=== PATIENT | male | born 1965 | race Caucasian/White ===

== ENCOUNTER 2023-02-18 11:52 | Day surgery (SDC) | payer OTHER ==
[2023-02-18] VITALS (10 sets, daily range): BP systolic 120–149; BP diastolic 72–91; PULSE 80–90; TEMP 98.9
[~2023-02-18] VITALS: Ht 185.4 cm; Wt 119.8 kg
[2023-02-18 12:39] LABS: HEMATOCRIT 48.2 % (42.0-52.0); HEMOGLOBIN 16.6 g/dl (13.5-18.0); MEAN CELL VOLUME 87 fl (80.0-100.0); MEAN CORPUSCULAR HEMOGLOBIN 30 pg (27-31); MEAN CORPUSCULAR HGB CONC 34 g/dl (33.0-37.0); MEAN PLATELET VOLUME 9.7 fl (7.4-10.4); PLATELET COUNT 404 K/mm3 (130-400); RED BLOOD COUNT 5.57 M/mm3 (4.20-5.60); REDCELL DISTRIBUTION WIDTH-CV 13.7 % (11.5-14.5)
[2023-02-18 12:45] LABS: INR 1.1 (0.8-3.0); PROTHROMBIN TIME 12.5 SECONDS (9.7-12.8)
[2023-02-18 12:47] LABS: PARTIAL THROMBOPLASTIN TIME 29.1 SECONDS (26.0-37.0)
[2023-02-18] MEDS ORDERED: TOPROL XL 25MG25 MG PO (12:51)
[2023-02-18] MEDS ORDERED: ENTRESTO 24 MG1 EACH PO (12:51)
[2023-02-18 12:55] LABS: CALCIUM 8.7 mg/dL (8.4-10.2); CREATININE, serum 0.98 mg/dL (0.72-1.25); POTASSIUM 3.6 mmol/L (3.5-4.5)
--- NOTE | 2023-02-18 14:00 | NUR ---
Please see merge documentation for record of interventions, vitals and medications administered during left heart cath.
[2023-02-18] MEDS ORDERED: PLAVIX 75MG TAB75 MG PO (14:31)
--- NOTE | 2023-02-18 17:27 | NUR ---
pt tolerated recovery period well. pt assisted to er exit via wheelchair. right radial dressing was clean dry and intact and pt remained free from signs of bleeding and hematoma. pt voided prior to discharge and IV discontinued. pt verbalized understanding of discharge instructions and was free from acute concerns and complaints at time of discharge.
== END 2023-02-18 17:28 | disposition home or self-care (01) ==
LOC: COL.CAR 11:52
PROVIDERS: Internal Medicine Interventional Cardiology
DX: R07.9 Chest pain, unspecified (principal); R94.39 Abnormal result of other cardiovascular function study; R94.31 Abnormal electrocardiogram [ECG] [EKG]; I50.20 Unspecified systolic (congestive) heart failure; F17.220 Nicotine dependence, chewing tobacco, uncomplicated
CPT/HCPCS: C1769; J1644; J2250; J3010; Q9967

== ENCOUNTER 2023-09-23 10:51 | Day surgery (SDC) | payer OTHER ==
[2023-09-23] VITALS (9 sets, daily range): BP systolic 104–122; BP diastolic 58–80; PULSE 65–96; TEMP 97.6–98.2
[~2023-09-23] VITALS: Ht 188 cm; Wt 120.4 kg
[~2023-09-23 10:51] MED LIST: 1/2 NS 1,000 ML IV SCH; ENTRESTO 24 MG1 EACH PO; PLAVIX 75MG TAB75 MG PO; TOPROL XL 25MG25 MG PO; Vancomycin 1.5 GM,Special Dose/Pharmacy Prepared 1.5 GM in NS 250 ML IV SCH
[2023-09-23] MEDS ORDERED: ENTRESTO 49 MG1 EACH PO (11:26)
[2023-09-23] MEDS ORDERED: CRESTOR20 MG PO (11:27)
[2023-09-23 11:50] LABS: BASO # 0.1 K/mm3 (0.0-0.2); BASO % 1.3 % (0.0-2.0); EOS # 0.2 K/mm3 (0.0-0.7); EOS % 2.2 % (0.0-4.0); GRAN % 56.6 % (42.2-75.2); HEMATOCRIT 44.8 % (42.0-52.0); HEMOGLOBIN 15.4 g/dl (13.5-18.0); LYMPH # 2.6 K/mm3 (1.2-3.4); LYMPH % 30.1 % (20.0-51.0); MEAN CELL VOLUME 85 fl (80.0-100.0); MEAN CORPUSCULAR HEMOGLOBIN 29 pg (27-31); MEAN CORPUSCULAR HGB CONC 34 g/dl (33.0-37.0); MEAN PLATELET VOLUME 9.1 fl (7.4-10.4); MONO # 0.8 K/mm3 (0.1-0.6); MONO % 9.3 % (1.7-9.3); PLATELET COUNT 355 K/mm3 (130-400); RED BLOOD COUNT 5.27 M/mm3 (4.20-5.60); REDCELL DISTRIBUTION WIDTH-CV 13.7 % (11.5-14.5)
[2023-09-23 12:03] LABS: CREATININE, serum 0.98 mg/dL (0.72-1.25); INR 1.2 (0.8-3.0); POTASSIUM 3.3 mEq/L (3.5-4.5); PROTHROMBIN TIME 13.4 SECONDS (9.7-12.8)
--- NOTE | 2023-09-23 15:23 | NUR ---
SEE MERGE FOR PROCEDURE DOCUMENTATION
[2023-09-23] MEDS ORDERED: Vancomycin 1 GM VIAL IR SCH (15:38)
[2023-09-23] MEDS ORDERED: NS 1,000 ML IV.SOLN. IR SCH (15:44)
[2023-09-23] MEDS ORDERED: Midazolam 2 MG/2 ML VIAL IV SCH (17:03)
[2023-09-23] MEDS ORDERED: fentaNYL 50 MCG/ML 2 ML VIAL IV SCH (17:04)
[2023-09-23] MEDS ORDERED: Iohexol 350 - 100 ML VIAL IV ONE (17:05)
[2023-09-23] MEDS ORDERED: Nitroglycerin 100 MCG/ML (Cath Lab) 10 ML VIAL IV SCH (17:20)
[2023-09-23] MEDS ORDERED: Furosemide 40 MG/4 ML VIAL IV SCH (17:24)
[2023-09-23] MEDS ORDERED: Chloroprocaine PF 3% (30 MG/ML) 20 ML VIAL IJ SCH (17:26)
[2023-09-23] MEDS ORDERED: CLEOCIN HCL300 MG PO (17:29)
[2023-09-23] MEDS ORDERED: Naloxone 0.4 MG/ML VIAL IV PRN (17:30)
--- NOTE | 2023-09-23 17:54 | NUR ---
PATIENT ARRIVED AT APROX 1745 FROM PACU. PATIEN TIS AWAKE ALERT AND ORIENTED. SITTING UP IN BED. CALL LIGHT WITHIN REACH. ICD SITE CDI, PRESSURE DRESSING PLACED, PER PACU PATIENT HAD A HEMATOMA FORMING AND PRESSURE DRESSIGN WAS PLACED. PATIENT DENIES ANY NEEDS OR PAIN AT THIS TIME. CALL LIGHT WITHIN REACH. POST OP VITALS INITIATED.
--- NOTE | 2023-09-23 17:57 | NUR ---
PT ALERT AND ORIENTED, REPORTS PAIN TO LEFT CHEST/SHOULDER IS TOLERABLE. DENIES NAUSEA. DRESSING SITE CDI, NO VISIBLE HEMATOMA OR BRUISING NOTED OUTSIDE OF DRESSING. PATIENT TRANSFERRED TO BED VIA SLIDEBOARD AND TRANSPORTED TO [facility]. TRANSFER OF CARE REPORT TO Shayne AND YOEL MARTIN. VITAL SIGNS TAKEN ON ARRIVAL, VSS. PATIENT PROVIDED CALL LIGHT, BED TO LOWEST POSITION, X3 BEDRAILS IN PLACE.
[2023-09-23] MEDS ORDERED: Acetaminophen 500 MG TAB PO SCH (18:26)
--- NOTE | 2023-09-23 18:45 | NUR ---
PT IN BED ON POST OP VITALS. PT ORIENTED TO ROOM, CALL LIGHT, SMOKINNG POLICY AND MEALS. PT STATES THAT HE CHEWS TOBACCO. THIS NURSE NOTIFIED PT THAT IT GOES AGAINST POLICY AND THAT PT WOULD NOT BE ABLE TO DO THAT HERE, PT STATES "PEOPLE BRINGS THINGS INTO THE HOSPITAL THEY SHOULDNT ALL THE TIME". THIS NURSE REEDUCATED PT AND ADVISED AGAINST THIS. INT TO LEFT HAND, FLUIDS STARTED PER ORDER. SCHEDULED TYLENOL GIVEN, PT REPORTS 5/10 LEFT SHOULDER PAIN. LEFT ARM IN SLING. PT USING LEFT ARM TO TAKE PILLS AND PUSH HIMSELF UP IN BED. THIS NURSE EDUCATED PT TO USE ARM LESS AND PT VERBALIZED UNDERSTANDING STATING "I DIDNT RAISE IT ABOVE MY HEAD". PT ON POST OP VITALS. PT DENIES NEEDS. BED IN LOWEST POSITION, CALL LIGHT IN REACH, BED ALARM ON
[2023-09-23] MEDS ORDERED: Clindamycin 150 MG CAP PO SCH (21:00)
[2023-09-23] MEDS ORDERED: fentaNYL 50 MCG/ML 2 ML VIAL IV PRN (22:15)
[2023-09-24] MEDS ORDERED: predniSONE 20 MG TAB PO ONE (02:15)
[2023-09-24] MEDS ORDERED: methylPREDNISolone Sod Succ 125 MG/2 ML VIAL IV ONE (02:15)
[2023-09-24] MEDS ORDERED: diphenhydrAMINE 50 MG CAP PO ONE (02:30)
[2023-09-24 03:37] VITALS: BP 147/80; PULSE 73; TEMP 97.6
[2023-09-24 04:05] VITALS: BP_SYST 147
--- NOTE | 2023-09-24 06:58 | NUR ---
Patient laying in bed sleeping, easily awakened with verbal command. A&Ox3, drowsy. VSS. 1L NC O2. IV CDI. LF chest incision CDI. Sling off, patient refusing to wear. Call light within reach
[2023-09-24 07:22] VITALS: BP 155/86; PULSE 84; TEMP 97.9
[2023-09-24 11:54] VITALS: BP 144/80; PULSE 83; TEMP 98
--- NOTE | 2023-09-24 12:28 | NUR ---
Discharge paperwork reviewed with the patient and family at the bedside. Patient verbalized an understanding to follow doctors orders. IV removed, tip intact. Gauze and coban applied. Home meds brought up from pharmacy. Patient ambulated independently to ER entrance. No further needs expressed.
--- NOTE | 2023-09-24 13:00 | NUR ---
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 Assessment: None. Patient declined. Plan of Care: Patient has since been discharged from this hospital.
== END 2023-09-24 12:31 | disposition home or self-care (01) ==
LOC: COL.CAR 10:51 → MEDICAL 17:30 → COL.CAR 09-24 12:31 → MEDICAL 09-24 12:31
PROVIDERS: Internal Medicine Interventional Cardiology
DX: I11.0 Hypertensive heart disease with heart failure (principal); I50.22 Chronic systolic (congestive) heart failure; I42.1 Obstructive hypertrophic cardiomyopathy; I44.7 Left bundle-branch block, unspecified
CPT/HCPCS: OP; C1769; C1777; C1882; C1894; C1898; C1900; J1940; J2250; J2401; J2919; J3010; J3370; J7030; J7050; J7512; Q9967